=== PATIENT | female | born 1935 | race Caucasian/White ===

== ENCOUNTER 2023-11-13 23:41 | Emergency (ER) | payer OTHER, SELFPAY ==
[2023-11-13 23:43] VITALS: BP 178/90
--- NOTE | 2023-11-14 01:22 | ED.GENMED ---
History of Present Illness
General
Chief Complaint: Skin Problem
Source: patient
Exam Limitations: none
Time Seen by Provider: 11/14/23 00:48
Travel History
Have you had any contact with someone who has COVID-19?: No
Do you have any symptoms of coronavirus? Fever > 100 degrees, chills, cough, shortness of breath, sore throat, loss of taste or smell, muscle aches, or headache?: No
History of Present Illness
History of Present Illness:
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 Procedure was done weeks ago. No thinners.
Past History
Past History
ED Past Medical History: GERD
ED Past Surgical History: None
Phy Exam
Physical Exam
Physical Exam:
General: Nontoxic appearing in no distress
Skin: Warm and dry, no rash
Neuro: Alert, nontoxic, grossly nonfocal
Psychiatric: Good eye contact and appropriate
Facial: 1 cm wound to the right face. Slight bloody oozing. No cellulitis or unusual drainage.
Course
Vital Signs
Initial and Last Documented VS:
Initial Vital Signs
Temp Pulse Resp BP Pulse Ox
98 F 78 22 178/90 97
11/13/23 23:43 11/13/23 23:43 11/13/23 23:43 11/13/23 23:43 11/13/23 23:43
Last Documented Vital Signs
Temp Pulse Resp BP Pulse Ox
98 F 78 22 178/90 97
11/13/23 23:43 11/13/23 23:43 11/13/23 23:43 11/13/23 23:43 11/13/23 23:43
*Critical Care Note
Total Time (30-74mins, 75-104mins- exclusive of procedures): Not Applicable
Update Note
Update Note:
Procedure: 1% with epi sterilely under the site. Gelfoam. Bleeding under control.
ED Attending Note
-
Portions of this chart may have been created with voice recognition software.� Occasional wrong word or��sound alike� substitutions may have occurred due to the inherent limitations of voice recognition software.
Discharge Plan
Departure
Patient Disposition: Home (Routine Discharge)
Date of Disposition: 11/14/23
Time of Disposition: 01:23
Patient with high blood pressure during this ER visit?: Yes
Discharge Problem:
Bleeding/basal cell surgical site
Instructions: Wound Care (DC), BLOOD PRESSURE
Prescriptions:
No Action
omeprazole 20 MG capsule,delayed release(DR/EC)
20 mg PO BID
gabapentin 100 MG capsule
100 mg PO HS
buspirone 5 mg tablet
5 mg PO BID
aspirin 81 mg Tablet,Delayed Release (Dr/Ec)
81 mg PO DAILY
diclofenac sodium 75 mg tablet,delayed release (DR/EC)
75 mg PO BID PRN (Reason: leg pain)
atorvastatin 20 mg Tablet
20 mg PO QPM Qty: 30 0RF
amlodipine 5 mg Tablet
5 mg PO DAILY Qty: 30 0RF
metoprolol tartrate 25 mg Tablet
25 mg PO BID Qty: 60 0RF
cholecalciferol (vitamin D3) 50 mcg (2,000 unit) capsule
50 mcg PO DAILY Qty: 30 0RF
Referrals:
Richy Hackett MD [Family Provider] -
Activity Restrictions/Additional Instructions:
Call the cutter operator helper Thursday morning for follow-up
If you have recurrent bleeding you can try the Gelfoam again
Interventions
Interventions:
*Risk Screen - Suicide Last Done: 11/13/23 23:43
*General Assessment Last Done: 11/14/23 01:05
*Neglect/Abuse Screening Last Done: 11/13/23 23:43
*ED COVID-19 Vaccine History Last Done: 11/14/23 01:05
ED-Skin Assessment Last Done: 11/14/23 01:05
Discharge Date and Time
Print Language: VINCENTIAN
== END 2023-11-14 01:58 | disposition home or self-care (01) ==
LOC: EMR 23:41
PROVIDERS: EMERGENCY PHYSICIAN Emergency Medicine; FAMILY PHYSICIAN Internal Medicine
DX: L76.21 Postprocedural hemorrhage of skin and subcutaneous tissue following a dermatologic procedure (principal); Y83.9 Surgical procedure, unspecified as the cause of abnormal reaction of the patient, or of later complication, without mention of misadventure at the time of the procedure; K21.9 Gastro-esophageal reflux disease without esophagitis; R03.0 Elevated blood-pressure reading, without diagnosis of hypertension
CPT/HCPCS: 99282

== ENCOUNTER 2024-02-06 09:10 | Emergency (ER) | payer OTHER, SELFPAY ==
[2024-02-06 09:12] VITALS: BP 138/87
--- NOTE | 2024-02-06 09:30 | ED.GENMED ---
History of Present Illness
General
Chief Complaint: Skin Problem
Time Seen by Provider: 02/06/24 09:19
History of Present Illness
History of Present Illness:
88-year-old female presents the emergency department for evaluation of a waxing and waning symptoms of itching and burning to the right lumbar paraspinous back ongoing for the past 3 months. Seems to be worsening in severity. No obvious provoking
or palliating factors. Symptoms does not radiate anteriorly or down the leg. Has never seen any skin lesions or rashes to the area. Does not correlate with starting any new medications. Was last seen in care physician 6 months ago states that
she had normal B12 and renal function at that time. Attempted to make several primary care appointments for this complaint but was unsuccessful
Past History
Past History
ED Past Medical History: GERD
ED Past Surgical History: None
Review of Systems
Review of Systems
Allergies reviewed?: Yes
All Other Systems: ROS reviewed and negative except as documented in HPI and ROS
Phy Exam
Physical Exam
Physical Exam:
GEN: Well appearing, NAD, WDWN
HEENT: Oral mucosa moist, no scleral icterus
Cardiac: Regular rate
Lung: No respiratory distress, no tachypnea
MSK: No gross deformity or injuries
Skin: Good color, no pallor or jaundice, no rashes. Site of reported itching appears unremarkable with few self inflicted traumatic petechiae, nontender, no provocation of symptoms on palpation
Neuro: AO x3, moves all extremities freely
Psych: Calm, cooperative
Course
Orders/Labs/Results
Orders:
Orders
02/06/24 09:30
Lidocaine [Lidocaine 4% Patch] 1 patch TOPICAL DAILY ONE
Apply Lidocaine patch(s) to:: R lower back
Vital Signs
Initial and Last Documented VS:
Initial Vital Signs
Temp Pulse Resp BP Pulse Ox
98.1 F 81 18 138/87 97
02/06/24 09:12 02/06/24 09:12 02/06/24 09:12 02/06/24 09:12 02/06/24 09:12
Last Documented Vital Signs
Temp Pulse Resp BP Pulse Ox
98.1 F 71 16 137/77 96
02/06/24 09:12 02/06/24 10:02 02/06/24 10:02 02/06/24 10:02 02/06/24 10:02
MDM/Problems Addressed
MDM/Problems Addressed:
Unclear etiology to symptoms, certainly no visible skin lesions noted on exam. Will trial topical lidocaine. Do not see indication for labs given that she reports she has had normal renal function and B12 levels in the past 6 months. Will
recommend primary care follow-up and dermatology follow-up for persistent symptoms
*Critical Care Note
Total Time (30-74mins, 75-104mins- exclusive of procedures): Not Applicable
ED Attending Note
-
Portions of this chart may have been created with voice recognition software.� Occasional wrong word or��sound alike� substitutions may have occurred due to the inherent limitations of voice recognition software.
Discharge Plan
Departure
Patient Disposition: Home (Routine Discharge)
Date of Disposition: 02/06/24
Time of Disposition: 09:30
Patient with high blood pressure during this ER visit?: No
Discharge Problem:
Localized pruritus
Prescriptions:
No Action
omeprazole 20 MG capsule,delayed release(DR/EC)
20 mg PO BID
gabapentin 100 MG capsule
100 mg PO HS
buspirone 5 mg tablet
5 mg PO BID
aspirin 81 mg Tablet,Delayed Release (Dr/Ec)
81 mg PO DAILY
diclofenac sodium 75 mg tablet,delayed release (DR/EC)
75 mg PO BID PRN (Reason: leg pain)
atorvastatin 20 mg Tablet
20 mg PO QPM Qty: 30 0RF
amlodipine 5 mg Tablet
5 mg PO DAILY Qty: 30 0RF
metoprolol tartrate 25 mg Tablet
25 mg PO BID Qty: 60 0RF
cholecalciferol (vitamin D3) 50 mcg (2,000 unit) capsule
50 mcg PO DAILY Qty: 30 0RF
Referrals:
Benita Sánchez DO [Active] -
Richy Hackett MD [Family Provider] -
Activity Restrictions/Additional Instructions:
The cause of your symptoms is not clear at this time. No obvious rashes are noted on the skin. He may try topical lidocaine patches for symptomatic relief. Follow-up with your primary care physician or dermatology as needed for continued symptoms
Interventions
Interventions:
*Risk Screen - Suicide Last Done: 02/06/24 09:12
*General Assessment Last Done: 02/06/24 09:12
*Neglect/Abuse Screening Last Done: 02/06/24 09:12
ED- Fall Risk Assessment Last Done: 02/06/24 09:43
*ED COVID-19 Vaccine History Last Done: 02/06/24 09:12
*Nursing Disposition Last Done: 02/06/24 10:02
ED-Skin Assessment Last Done: 02/06/24 09:43
Discharge Date and Time
Discharge Date/Time: 02/06/24 10:00
Print Language: GHANAIAN
[2024-02-06] MEDS: LIDOCAINE 4% PATCH 1 PATCH TOPICAL (09:52)
--- NOTE | 2024-02-06 10:00 | EDRN ---
Reviewed discharge instructions with patient. Verbalized understanding. Ambulated with steady gait to the lobby.
[2024-02-06 10:02] VITALS: BP 137/77
== END 2024-02-06 10:00 | disposition home or self-care (01) ==
LOC: EMR 09:10
PROVIDERS: EMERGENCY PHYSICIAN Emergency Medicine; FAMILY PHYSICIAN Internal Medicine
DX: L29.9 Pruritus, unspecified (principal)
CPT/HCPCS: 99282

== ENCOUNTER → 2024-05-05 13:23 | Outpatient (REF) | payer OTHER, SELFPAY | LOC: RAD 13:23 | PROVIDERS: ATTENDING PHYSICIAN Internal Medicine | DX: R07.89 Other chest pain (principal) | CPT/HCPCS: 71046 ==